=== PATIENT | female | born 1980 | race Caucasian/White ===

== ENCOUNTER 2018-05-10 22:41 | Emergency (ER) | payer MEDICAID ==
[2018-05-10 23:21] LABS: ADD UMIC YES; UR ASCORBIC ACID NEGATIVE (NEGATIVE); UR BACTERIA FEW /HPF (NONE SEEN); UR BILIRUBIN (Dip) NEGATIVE (NEGATIVE); UR BLOOD (Dip) 2+ mg/dL (NEGATIVE); UR CLARITY SLIGHTLY CLOUDY (CLEAR); UR COLOR STRAW (YELLOW); UR GLUCOSE (Dip) NEGATIVE (NEGATIVE); UR KETONES (Dip) NEGATIVE (NEGATIVE); UR LEUKOCYTE ESTERASE (Dip) NEGATIVE Leu/ul (NEGATIVE); UR NITRITE (Dip) NEGATIVE (NEGATIVE); UR RBC 1 /HPF (0-5); UR SPECIFIC GRAVITY (Dip) 1.008 (1.003-1.030); UR TOTAL PROTEIN (Dip) NEGATIVE (NEGATIVE); UR UROBILINOGEN (Dip) NEGATIVE (NEGATIVE); UR WBC 0 /HPF (0-5)
[2018-05-10] MEDS: ONDANSETRON 4 MG INJ IV (23:23)
[2018-05-10] MEDS: SOD CHLORIDE 0.9% 1,000 ML IV (23:24)
[2018-05-10 23:29] LABS: ADD MAN DIFF? NO
[2018-05-10 23:31] LABS: BASOPHILS % 0.4 % (0.0-2.0); EOSINOPHILS # 0.1 10^3/ul (0.0-0.5); EOSINOPHILS % 1.7 % (0.0-7.0); HEMATOCRIT 42.8 % (37.0-47.0); LYMPHOCYTES # 2.4 10^3/ul (0.8-2.9); LYMPHOCYTES % 28.8 % (15.0-51.0); MEAN CORPUSCULAR HEMOGLOBIN 29.4 pg (29.0-33.0); MEAN CORPUSCULAR HGB CONC 32.7 g/dl (32.0-37.0); MEAN CORPUSCULAR VOLUME 89.7 fl (82.0-101.0); MEAN PLATELET VOLUME 10.1 fl (7.4-10.4); MONOCYTE # 0.5 10^3/ul (0.3-0.9); MONOCYTES % 5.5 % (0.0-11.0); NEUTROPHIL # 5.2 10^3/ul (1.6-7.5); NEUTROPHILS % 63.2 % (39.0-77.0); PLATELET COUNT 265 10^3/UL (140-415); RED BLOOD COUNT 4.77 10^6/ul (4.20-5.40)
[2018-05-10 23:31] LABS: WHITE BLOOD COUNT 8.2 10^3/ul (4.8-10.8)
[2018-05-10 23:51] LABS: ALANINE AMINOTRANSFERASE 35 IU/L (13-69); ALBUMIN 5.3 g/dl (3.3-4.9); ALBUMIN/GLOBULIN RATIO 1.76; ALKALINE PHOSPHATASE 113 IU/L (42-121); ANION GAP 12 (5-13); ASPARTATE AMINO TRANSFERASE 30 IU/L (15-46); BILIRUBIN,INDIRECT 0.6 mg/dl (0-1.1); BILIRUBIN,TOTAL 0.6 mg/dl (0.2-1.3); BLOOD UREA NITROGEN 17 mg/dl (7-20); CARBON DIOXIDE 28 mmol/L (21-31); CHLORIDE 99 mmol/L (97-110); CREATININE 0.68 mg/dl (0.44-1.00); Estimated GFR > 60 mL/min (>60); GLUCOSE 110 mg/dl (70-220); POTASSIUM 4.2 mmol/L (3.5-5.1); SODIUM 139 mmol/L (135-144); TOTAL PROTEIN 8.3 g/dl (6.1-8.1)
[2018-05-11] MEDS: KETOROLAC 30 MG INJ IV (00:10)
[2018-05-11] MEDS ORDERED: ONDANSETRON (ODT) 4 MG TAB ODT (00:54)
== END 2018-05-11 01:13 | disposition home or self-care (01) ==
LOC: FTE 05-11 01:13
DX: R51 Headache (principal)
CPT/HCPCS: 36415; 80053; 81001; 81025; 84702; 85025; 96374; 99284-25

== ENCOUNTER 2018-05-29 20:31 | Emergency (ER) | payer MEDICAID ==
[2018-05-29] MEDS: HYDROCODONE/APAP (10/325) TAB PO (21:12)
== END 2018-05-29 21:29 | disposition home or self-care (01) ==
LOC: FTE 20:31
DX: J01.90 Acute sinusitis, unspecified (principal); H01.009 Unspecified blepharitis unspecified eye, unspecified eyelid; H10.9 Unspecified conjunctivitis; J30.9 Allergic rhinitis, unspecified
CPT/HCPCS: 99283; Z7502

== ENCOUNTER 2018-09-08 20:51 | Emergency (ER) | payer MEDICAID ==
[2018-09-08] MEDS: HYDROCODONE/APAP (5/325) TAB PO (23:42)
[2018-09-08 23:55] LABS: URINE BLOOD (Dip) POC Trace-lysed (NEGATIVE); URINE GLUCOSE (Dip) POC Negative (NEGATIVE); URINE KETONES (Dip) POC Negative (NEGATIVE); URINE LEUKOCYTE EST (Dip) POC Negative (NEGATIVE); URINE NITRITE (Dip) POC Negative (NEGATIVE); URINE TOTAL PROTEIN POC Negative (NEGATIVE)
[2018-09-08] MEDS: KETOROLAC 60 MG INJ IM (23:57)
== END 2018-09-09 00:28 | disposition home or self-care (01) ==
LOC: FTE 09-09 00:28
DX: M72.2 Plantar fascial fibromatosis (principal)
CPT/HCPCS: 81003; 81025; 96372; 99284-25

== ENCOUNTER 2019-01-19 22:40 | Emergency (ER) | payer MEDICAID ==
[2019-01-20] MEDS: DEXAMETHASONE 10 MG/ML 1 ML INJ IM (00:56)
[2019-01-20] MEDS: KETOROLAC 30 MG INJ IM (00:57)
== END 2019-01-20 01:45 | disposition home or self-care (01) ==
LOC: FTE 01-20 01:45
DX: S90.32XA Contusion of left foot, initial encounter (principal); M54.42 Lumbago with sciatica, left side; X50.1XXA Overexertion from prolonged static or awkward postures, initial encounter; Y92.002 Bathroom of unspecified non-institutional (private) residence as the place of occurrence of the external cause
CPT/HCPCS: 73630; 73630-LT; 81025; 96372; 99284-25

== ENCOUNTER 2019-02-05 08:32 | Inpatient (IN) | payer MEDICAID ==
[2019-02-05] MEDS: SOD CHLORIDE 0.9% 1,000 ML IV ×3 (09:39→21:59)
[2019-02-05] MEDS: ONDANSETRON 4 MG INJ IV ×2 (09:39→11:37)
[2019-02-05 09:44] LABS: ADD MAN DIFF? NO
[2019-02-05] MEDS: KETOROLAC 30 MG INJ IV (09:44)
[2019-02-05 09:45] LABS: WHITE BLOOD COUNT 7.2 10^3/ul (4.8-10.8)
[2019-02-05 09:45] LABS: BASOPHILS % 0.4 % (0.0-2.0); EOSINOPHILS # 0.1 10^3/ul (0.0-0.5); EOSINOPHILS % 1.3 % (0.0-7.0); HEMATOCRIT 43.4 % (37.0-47.0); HEMOGLOBIN 14.1 g/dl (12.0-16.0); LYMPHOCYTES # 1.1 10^3/ul (0.8-2.9); LYMPHOCYTES % 15.3 % (15.0-51.0); MEAN CORPUSCULAR HEMOGLOBIN 29.6 pg (29.0-33.0); MEAN CORPUSCULAR HGB CONC 32.5 g/dl (32.0-37.0); MEAN CORPUSCULAR VOLUME 91.2 fl (82.0-101.0); MEAN PLATELET VOLUME 9.9 fl (7.4-10.4); MONOCYTE # 0.4 10^3/ul (0.3-0.9); MONOCYTES % 5.8 % (0.0-11.0); NEUTROPHIL # 5.5 10^3/ul (1.6-7.5); NEUTROPHILS % 76.9 % (39.0-77.0); PLATELET COUNT 237 10^3/UL (140-415); RED BLOOD COUNT 4.76 10^6/ul (4.20-5.40); RED CELL DISTRIBUTION WIDTH 12.4 % (11.5-14.5)
[2019-02-05 09:49] LABS: ADD UMIC YES; UR ASCORBIC ACID NEGATIVE (NEGATIVE); UR BACTERIA FEW /HPF (NONE SEEN); UR BILIRUBIN (Dip) NEGATIVE (NEGATIVE); UR BLOOD (Dip) 1+ mg/dL (NEGATIVE); UR CLARITY CLEAR (CLEAR); UR COLOR YELLOW (YELLOW); UR GLUCOSE (Dip) NEGATIVE (NEGATIVE); UR KETONES (Dip) NEGATIVE (NEGATIVE); UR LEUKOCYTE ESTERASE (Dip) NEGATIVE Leu/ul (NEGATIVE); UR NITRITE (Dip) NEGATIVE (NEGATIVE); UR RBC 1 /HPF (0-5); UR SPECIFIC GRAVITY (Dip) 1.015 (1.003-1.030); UR TOTAL PROTEIN (Dip) NEGATIVE (NEGATIVE); UR UROBILINOGEN (Dip) NEGATIVE (NEGATIVE); UR WBC 2 /HPF (0-5)
[2019-02-05 10:08] LABS: ALANINE AMINOTRANSFERASE 344 IU/L (13-69); ALBUMIN 4.4 g/dl (3.3-4.9); ALBUMIN/GLOBULIN RATIO 1.37; ALKALINE PHOSPHATASE 130 IU/L (42-121); ANION GAP 8 (5-13); ASPARTATE AMINO TRANSFERASE 610 IU/L (15-46); BILIRUBIN,INDIRECT 0.9 mg/dl (0-1.1); BLOOD UREA NITROGEN 10 mg/dl (7-20); CALCIUM 9.6 mg/dl (8.4-10.2); CARBON DIOXIDE 28 mmol/L (21-31); CHLORIDE 104 mmol/L (97-110); CREATININE 0.79 mg/dl (0.44-1.00); Estimated GFR > 60 mL/min (>60); GLUCOSE 128 mg/dl (70-220); SODIUM 140 mmol/L (135-144); TOTAL PROTEIN 7.6 g/dl (6.1-8.1)
[2019-02-05 10:58] LABS: LIPASE 20381 U/L (23-300)
[2019-02-05] MEDS: morphine 4 MG/ML VIAL IV ×2 (11:37→13:25)
[2019-02-05] MEDS ORDERED: ACETAMINOPHEN 325 MG TAB PO (12:30)
[2019-02-05] MEDS ORDERED: ONDANSETRON 4 MG INJ IV (12:30)
[2019-02-05] MEDS ORDERED: NACL 0.9% 3 ML SYG IV (14:00)
[2019-02-05] MEDS ORDERED: morphine 4 MG/ML VIAL IV (14:00)
[2019-02-05 14:09] LABS: HEMOGLOBIN A1C 5.3 % (0-5.9)
[2019-02-05 14:23] LABS: HAAIG REFLEX REFLEX FILED
[2019-02-05 15:27] LABS: HEPATITIS B CORE ANTIBODY NEGATIVE (NEGATIVE); HEPATITIS C VIRAL ANTIBODY NEGATIVE (NEGATIVE)
[2019-02-05 15:57] LABS: HEPATITIS B SURFACE ANTIGEN NEGATIVE (NEGATIVE)
[2019-02-06] MEDS: SOD CHLORIDE 0.9% 1,000 ML IV ×4 (06:00→22:39)
[2019-02-06 06:04] LABS: ADD MAN DIFF? NO
[2019-02-06 06:21] LABS: WHITE BLOOD COUNT 5.1 10^3/ul (4.8-10.8)
[2019-02-06 06:21] LABS: BASOPHILS % 0.4 % (0.0-2.0); EOSINOPHILS # 0.1 10^3/ul (0.0-0.5); EOSINOPHILS % 2.8 % (0.0-7.0); HEMATOCRIT 39.2 % (37.0-47.0); HEMOGLOBIN 12.5 g/dl (12.0-16.0); LYMPHOCYTES # 0.9 10^3/ul (0.8-2.9); LYMPHOCYTES % 17.8 % (15.0-51.0); MEAN CORPUSCULAR HEMOGLOBIN 29.6 pg (29.0-33.0); MEAN CORPUSCULAR HGB CONC 31.9 g/dl (32.0-37.0); MEAN CORPUSCULAR VOLUME 92.9 fl (82.0-101.0); MEAN PLATELET VOLUME 10.1 fl (7.4-10.4); MONOCYTE # 0.3 10^3/ul (0.3-0.9); NEUTROPHIL # 3.7 10^3/ul (1.6-7.5); NEUTROPHILS % 73.8 % (39.0-77.0); PLATELET COUNT 187 10^3/UL (140-415); RED BLOOD COUNT 4.22 10^6/ul (4.20-5.40); RED CELL DISTRIBUTION WIDTH 12.6 % (11.5-14.5)
[2019-02-06 06:41] LABS: PHOSPHORUS 2.9 mg/dl (2.5-4.9)
[2019-02-06 06:44] LABS: ALANINE AMINOTRANSFERASE 261 IU/L (13-69); ALBUMIN 3.3 g/dl (3.3-4.9); ALBUMIN/GLOBULIN RATIO 1.13; ALKALINE PHOSPHATASE 100 IU/L (42-121); AMYLASE 550 U/L (11-123); ANION GAP 4 (5-13); ASPARTATE AMINO TRANSFERASE 173 IU/L (15-46); BLOOD UREA NITROGEN 8 mg/dl (7-20); CALCIUM 8.3 mg/dl (8.4-10.2); CARBON DIOXIDE 29 mmol/L (21-31); CHLORIDE 106 mmol/L (97-110); CREATININE 0.67 mg/dl (0.44-1.00); Estimated GFR > 60 mL/min (>60); GLUCOSE 97 mg/dl (70-220); POTASSIUM 3.9 mmol/L (3.5-5.1); SODIUM 139 mmol/L (135-144); TOTAL PROTEIN 6.2 g/dl (6.1-8.1)
[2019-02-06] MEDS: HYDROCODONE/APAP (5/325) TAB PO ×2 (07:09→15:08)
[2019-02-06 07:35] LABS: LIPASE 3791 U/L (23-300)
[2019-02-06] MEDS: ENOXAPARIN 40 MG/0.4 ML SYG SC (09:43)
[2019-02-06] MEDS: ONDANSETRON 4 MG INJ IV (11:41)
[2019-02-06] MEDS ORDERED: DIPHENHYDRAMINE 50 MG INJ IV (12:30)
[2019-02-06] MEDS ORDERED: BISACODYL 10 MG SUPP PR (12:30)
[2019-02-06 13:33] LABS: CHOL/HDL RATIO 3.5 RATIO; HDL CHOLESTEROL 46 mg/dl (34-82); LDL CHOLESTEROL,CALCULATED 97 mg/dl; TRIGLYCERIDES 92 mg/dl (0-149)
[2019-02-06 13:33] LABS: CHOLESTEROL 161 mg/dl (100-200)
[2019-02-06] MEDS: HYOSCYAMINE 0.125 MG SUBL TAB PO ×2 (15:30→22:39)
[2019-02-06] MEDS: PANTOPRAZOLE 40 MG INJ IV (17:54)
[2019-02-06] MEDS: POLYETHYLENE GLYCOL 17 GM PACKET PO (20:11)
[2019-02-07] MEDS: PANTOPRAZOLE 40 MG INJ IV ×2 (06:05→18:07)
[2019-02-07] MEDS: HYOSCYAMINE 0.125 MG SUBL TAB PO ×3 (06:16→21:26)
[2019-02-07] MEDS: SOD CHLORIDE 0.9% 1,000 ML IV ×2 (06:16→14:55)
[2019-02-07 07:33] LABS: ADD MAN DIFF? NO
[2019-02-07 07:40] LABS: BASOPHILS % 0.1 % (0.0-2.0); EOSINOPHILS # 0.2 10^3/ul (0.0-0.5); EOSINOPHILS % 2.6 % (0.0-7.0); HEMATOCRIT 40.8 % (37.0-47.0); LYMPHOCYTES % 13.5 % (15.0-51.0); MEAN CORPUSCULAR HEMOGLOBIN 29.2 pg (29.0-33.0); MEAN CORPUSCULAR HGB CONC 31.9 g/dl (32.0-37.0); MEAN CORPUSCULAR VOLUME 91.7 fl (82.0-101.0); MEAN PLATELET VOLUME 9.8 fl (7.4-10.4); MONOCYTE # 0.4 10^3/ul (0.3-0.9); MONOCYTES % 5.6 % (0.0-11.0); NEUTROPHIL # 5.6 10^3/ul (1.6-7.5); NEUTROPHILS % 77.6 % (39.0-77.0); PLATELET COUNT 202 10^3/UL (140-415); RED BLOOD COUNT 4.45 10^6/ul (4.20-5.40); RED CELL DISTRIBUTION WIDTH 12.2 % (11.5-14.5)
[2019-02-07 07:40] LABS: WHITE BLOOD COUNT 7.2 10^3/ul (4.8-10.8)
[2019-02-07 08:03] LABS: PHOSPHORUS 3.1 mg/dl (2.5-4.9)
[2019-02-07 08:08] LABS: ALANINE AMINOTRANSFERASE 182 IU/L (13-69); ALBUMIN 3.7 g/dl (3.3-4.9); ALBUMIN/GLOBULIN RATIO 1.15; ALKALINE PHOSPHATASE 103 IU/L (42-121); AMYLASE 144 U/L (11-123); ANION GAP 6 (5-13); ASPARTATE AMINO TRANSFERASE 74 IU/L (15-46); BILIRUBIN,INDIRECT 0.8 mg/dl (0-1.1); BILIRUBIN,TOTAL 0.8 mg/dl (0.2-1.3); BLOOD UREA NITROGEN 6 mg/dl (7-20); CALCIUM 8.6 mg/dl (8.4-10.2); CARBON DIOXIDE 27 mmol/L (21-31); CHLORIDE 105 mmol/L (97-110); Estimated GFR > 60 mL/min (>60); GLUCOSE 80 mg/dl (70-220); LIPASE 255 U/L (23-300); POTASSIUM 4.3 mmol/L (3.5-5.1); SODIUM 138 mmol/L (135-144); TOTAL PROTEIN 6.9 g/dl (6.1-8.1)
[2019-02-07] MEDS: POLYETHYLENE GLYCOL 17 GM PACKET PO ×2 (08:44→21:26)
[2019-02-08] MEDS: SOD CHLORIDE 0.9% 1,000 ML IV ×2 (04:08→06:23)
[2019-02-08] MEDS: HYOSCYAMINE 0.125 MG SUBL TAB PO (06:23)
[2019-02-08] MEDS: PANTOPRAZOLE 40 MG INJ IV (06:23)
[2019-02-08 06:28] LABS: ADD MAN DIFF? NO
[2019-02-08 06:30] LABS: WHITE BLOOD COUNT 6.4 10^3/ul (4.8-10.8)
[2019-02-08 06:30] LABS: BASOPHILS % 0.3 % (0.0-2.0); EOSINOPHILS # 0.2 10^3/ul (0.0-0.5); HEMATOCRIT 41.1 % (37.0-47.0); HEMOGLOBIN 13.2 g/dl (12.0-16.0); LYMPHOCYTES # 1.2 10^3/ul (0.8-2.9); LYMPHOCYTES % 18.1 % (15.0-51.0); MEAN CORPUSCULAR HEMOGLOBIN 29.3 pg (29.0-33.0); MEAN CORPUSCULAR HGB CONC 32.1 g/dl (32.0-37.0); MEAN CORPUSCULAR VOLUME 91.3 fl (82.0-101.0); MEAN PLATELET VOLUME 10.1 fl (7.4-10.4); MONOCYTE # 0.4 10^3/ul (0.3-0.9); MONOCYTES % 5.8 % (0.0-11.0); NEUTROPHIL # 4.6 10^3/ul (1.6-7.5); NEUTROPHILS % 72.3 % (39.0-77.0); PLATELET COUNT 222 10^3/UL (140-415); RED CELL DISTRIBUTION WIDTH 12.2 % (11.5-14.5)
[2019-02-08 06:58] LABS: ALANINE AMINOTRANSFERASE 122 IU/L (13-69); ALBUMIN/GLOBULIN RATIO 1.25; ALKALINE PHOSPHATASE 94 IU/L (42-121); AMYLASE 69 U/L (11-123); ANION GAP 8 (5-13); ASPARTATE AMINO TRANSFERASE 48 IU/L (15-46); BILIRUBIN,INDIRECT 0.5 mg/dl (0-1.1); BILIRUBIN,TOTAL 0.5 mg/dl (0.2-1.3); BLOOD UREA NITROGEN 8 mg/dl (7-20); CALCIUM 9.1 mg/dl (8.4-10.2); CARBON DIOXIDE 26 mmol/L (21-31); CHLORIDE 105 mmol/L (97-110); CREATININE 0.75 mg/dl (0.44-1.00); Estimated GFR > 60 mL/min (>60); GLUCOSE 104 mg/dl (70-220); LIPASE 71 U/L (23-300); SODIUM 139 mmol/L (135-144); TOTAL PROTEIN 7.2 g/dl (6.1-8.1)
[2019-02-08 06:59] LABS: MAGNESIUM 2.1 mg/dl (1.7-2.5)
[2019-02-08 06:59] LABS: PHOSPHORUS 3.4 mg/dl (2.5-4.9)
[2019-02-08] MEDS: POLYETHYLENE GLYCOL 17 GM PACKET PO (08:23)
== END 2019-02-08 12:35 | disposition home or self-care (01) | DRG 439 ==
LOC: FTE 08:32 → 2NE 12:12
DX: K85.10 Biliary acute pancreatitis without necrosis or infection (principal); Z68.41 Body mass index [BMI] 40.0-44.9, adult; E66.01 Morbid (severe) obesity due to excess calories; Z71.3 Dietary counseling and surveillance; I10 Essential (primary) hypertension; R74.0 Nonspecific elevation of levels of transaminase and lactic acid dehydrogenase [LDH]
CPT/HCPCS: 36415; 76705; 80053; 80061; 81001; 81025; 82150; 83036; 83690; 83735; 84100; 85025; 86704; 86708; 86709; 86803; 87340; 93970; 96374; 96375; 96376; 99285-25

== ENCOUNTER 2019-02-09 03:31 | Inpatient (IN) | payer MEDICAID ==
[2019-02-09] MEDS ORDERED: ACETAMINOPHEN 325 MG TAB PO (04:30)
[2019-02-09] MEDS ORDERED: ONDANSETRON 4 MG INJ IV ×4 (04:30→11:00)
[2019-02-09 04:50] LABS: ADD MAN DIFF? NO
[2019-02-09 04:51] LABS: WHITE BLOOD COUNT 7.1 10^3/ul (4.8-10.8)
[2019-02-09 04:51] LABS: BASOPHILS % 0.6 % (0.0-2.0); EOSINOPHILS # 0.2 10^3/ul (0.0-0.5); EOSINOPHILS % 3.2 % (0.0-7.0); HEMATOCRIT 41.7 % (37.0-47.0); HEMOGLOBIN 13.5 g/dl (12.0-16.0); LYMPHOCYTES # 1.4 10^3/ul (0.8-2.9); LYMPHOCYTES % 19.1 % (15.0-51.0); MEAN CORPUSCULAR HEMOGLOBIN 29.5 pg (29.0-33.0); MEAN CORPUSCULAR HGB CONC 32.4 g/dl (32.0-37.0); MEAN PLATELET VOLUME 9.7 fl (7.4-10.4); MONOCYTE # 0.5 10^3/ul (0.3-0.9); MONOCYTES % 6.3 % (0.0-11.0); NEUTROPHILS % 70.5 % (39.0-77.0); PLATELET COUNT 246 10^3/UL (140-415); RED BLOOD COUNT 4.58 10^6/ul (4.20-5.40); RED CELL DISTRIBUTION WIDTH 12.4 % (11.5-14.5)
[2019-02-09 05:09] LABS: ALANINE AMINOTRANSFERASE 116 IU/L (13-69); ALBUMIN 4.3 g/dl (3.3-4.9); ALKALINE PHOSPHATASE 101 IU/L (42-121); ANION GAP 7 (5-13); ASPARTATE AMINO TRANSFERASE 44 IU/L (15-46); BILIRUBIN,INDIRECT 0.5 mg/dl (0-1.1); BILIRUBIN,TOTAL 0.5 mg/dl (0.2-1.3); BLOOD UREA NITROGEN 8 mg/dl (7-20); CALCIUM 9.7 mg/dl (8.4-10.2); CARBON DIOXIDE 27 mmol/L (21-31); CHLORIDE 105 mmol/L (97-110); CREATININE 0.77 mg/dl (0.44-1.00); Estimated GFR > 60 mL/min (>60); GLUCOSE 113 mg/dl (70-220); LIPASE 81 U/L (23-300); POTASSIUM 4.1 mmol/L (3.5-5.1); SODIUM 139 mmol/L (135-144); TOTAL PROTEIN 7.6 g/dl (6.1-8.1)
[2019-02-09 05:40] LABS: INR 0.94; PROTIME 12.7 Sec (11.9-14.9)
[2019-02-09] MEDS ORDERED: DEXTROSE 5%-0.45% NACL 1,000 ML IV (06:41)
[2019-02-09] MEDS ORDERED: NACL 0.9% 3 ML SYG IV (07:00)
[2019-02-09] MEDS ORDERED: morphine 2 MG INJ IV ×2 (07:00→11:00)
[2019-02-09] MEDS ORDERED: ALBUTEROL/IPRATROPIUM (NEB) 3 ML AMP HHN (07:00)
[2019-02-09] MEDS ORDERED: FAMOTIDINE 20 MG INJ IV (09:00)
[2019-02-09] MEDS ORDERED: LABETALOL HCL 20MG INJ IV (09:30)
[2019-02-09] MEDS ORDERED: FENTAnyl 50 MCG/ML VIAL IV (09:30)
[2019-02-09] MEDS ORDERED: EPHEDrine 25 MG/5 ML SYG IV (09:30)
[2019-02-09] MEDS ORDERED: HYDROmorphONE 1 MG/5 ML IV SYRINGE IV (09:30)
[2019-02-09] MEDS ORDERED: DIPHENHYDRAMINE 50 MG INJ IV (09:30)
[2019-02-09] MEDS ORDERED: PROCHLORPERAZINE 10 MG INJ IV (09:30)
[2019-02-09] MEDS ORDERED: hydrALAzine 20 MG INJ IV (09:30)
[2019-02-09] MEDS ORDERED: ROCURONIUM 50 MG INJ (09:47)
[2019-02-09] MEDS ORDERED: SUCCINYLCHOLINE CHLORIDE 100 MG/5 ML SYG IV (09:47)
[2019-02-09] MEDS ORDERED: PROPOFOL 20 ML (09:47)
[2019-02-09] MEDS ORDERED: PROPOFOL 200 MG INJ (09:47)
[2019-02-09] MEDS ORDERED: MIDAZOLAM 1 MG/ML 2 ML INJ (09:47)
[2019-02-09] MEDS ORDERED: LIDOCAINE 2% (SDV) 5 ML INJ (09:47)
[2019-02-09] MEDS ORDERED: FENTAnyl 50 MCG/ML VIAL (09:48)
[2019-02-09] MEDS ORDERED: ROPIVACAINE 0.5 % 30 ML VIAL (09:48)
[2019-02-09] MEDS ORDERED: CEFAZOLIN 1 GM INJ (10:34)
[2019-02-09] MEDS ORDERED: ONDANSETRON 4 MG INJ (10:35)
[2019-02-09] MEDS ORDERED: DEXAMETHASONE 4 MG/ML 5 ML INJ (10:35)
[2019-02-09] MEDS ORDERED: SUGAMMADEX SODIUM 200 MG/2 ML VIAL IV ×2 (10:41→10:43)
[2019-02-09] MEDS: BUPIVACAINE 0.5%/EPI (SDV) 30 ML INJ (10:50)
[2019-02-09] MEDS ORDERED: KETOROLAC 30 MG INJ (10:50)
[2019-02-09] MEDS ORDERED: OXYCODONE/ACETAMINOPHEN (5/325) TAB PO ×2 (11:00)
[2019-02-09] MEDS: HYDROmorphONE 1 MG/5 ML IV SYRINGE IV ×5 (11:16→12:05)
[2019-02-09] MEDS: MEPERIDINE 25 MG INJ IV (11:27)
== END 2019-02-09 13:24 | disposition home or self-care (01) | DRG 418 ==
LOC: E/R 03:31 → REC 04:32
PROC: 0FT44ZZ Resection of Gallbladder, Percutaneous Endoscopic Approach (ICD-10-PCS; principal; 2019-02-09 09:48)
DX: K85.10 Biliary acute pancreatitis without necrosis or infection (principal); K80.10 Calculus of gallbladder with chronic cholecystitis without obstruction; Z68.41 Body mass index [BMI] 40.0-44.9, adult; E66.01 Morbid (severe) obesity due to excess calories; I10 Essential (primary) hypertension
CPT/HCPCS: 80053; 81025; 83690; 85025; 85610; 86850; 86900; 86901; 88304; 99285-25